=== PATIENT | male | born 1980 | race American Indian/Alaskan Native ===

== ENCOUNTER 2017-04-15 09:54 | Outpatient (CLI) | payer OTHER ==
--- NOTE | 2017-04-16 08:07 | Magnetic Resonance Report ---
MR LOWER EXTREMITY JOINT LEFT WITHOUT CONTRAST HISTORY: Hemarthrosis, left knee pain and swelling. TECHNIQUE: Multisequence, multiplanar MRI without contrast was performed through the left knee. COMPARISON: None at this facility. FINDINGS: There is severe diffuse subcutaneous swelling and edema. There is a large joint effusion which extends the suprapatellar bursa. There is evidence for hemorrhage in the anterior and anteromedial soft tissues. Complete rupture of the patellar tendon is appreciated at or very near its insertion site on the inferior border of the patella. A patellar tendon is markedly thickened and abnormal and retracted distally. [place] Jennifer is present. There appear to be 1 or 2 small bony fragments attached to the ruptured patellar tendon. The medial and lateral retinacula are poorly demonstrated on this exam and may be ruptured. The ACL, PCL, MCL and LCL complex are grossly intact. The medial and lateral menisci are within normal limits. The bone marrow signal is within normal limits. No fracture or bone lesion is appreciated. No cartilage defect is detected. IMPRESSION: Patellar tendon rupture. Large joint effusion. Severe soft tissue swelling.
== END 2017-04-15 09:55 | disposition home or self-care (01) ==
LOC: MRI 09:54
PROVIDERS: ATTEND Family Medicine
DX: S76.112A Strain of left quadriceps muscle, fascia and tendon, initial encounter (principal); X58.XXXA Exposure to other specified factors, initial encounter; Y93.89 Activity, other specified; Y92.89 Other specified places as the place of occurrence of the external cause; Y99.8 Other external cause status
CPT/HCPCS: 73721